=== PATIENT | female | born 1960 | race Caucasian/White ===

== ENCOUNTER → 2018-02-03 12:47 | Outpatient (CLI) | payer OTHER, SELFPAY ==
--- NOTE | 2018-02-03 | DI.MG.S_ITS ---
UNILATERAL RIGHT DIGITAL DIAGNOSTIC MAMMOGRAM 3D/2D: 02/03/2018 CLINICAL: Additional evaluation requested from prior study. Comparison is made to exams dated: 01/28/2012 mammogram - [facility], 12/30/2017 mammogram, 12/26/2016 mammogram, 12/26/2015 mammogram, and 12/22/2014 mammogram - [facility]. There are scattered fibroglandular elements in the right breast. There is a benign oval equal density asymmetry with an indistinct margin in the right breast anterior depth lateral region seen on the craniocaudal view only. This is not seen in additional views. No other significant masses or calcifications are seen in the breast. IMPRESSION: BENIGN There is no mammographic evidence of malignancy. A 1 year screening mammogram is recommended. This exam was interpreted at Station ID: [id number]. NOTE: For mammograms, a report in lay terms will be sent to the patient. Approximately 15% of breast malignancies will not be visualized mammographically. In the management of a palpable breast mass, a negative mammogram must not discourage biopsy of a clinically suspicious lesion. Electronically Signed By: Navin tang/tanvi:02/03/2018 13:32:52 letter sent: Normal Exam ACR BI-RADS Category 2: Benign Finding(s) 3342F
== END ==
PROVIDERS: Family Provider Physician Assistant; PCP Physician Assistant; Visit Provider Physician Assistant
DX: R92.2 Inconclusive mammogram (principal)
CPT/HCPCS: 77065; G0279

== ENCOUNTER 2018-03-05 07:47 | Day surgery (SDC) | payer OTHER, SELFPAY ==
[2018-03-05] VITALS (7 sets, daily range): BP systolic 92–109; BP diastolic 57–68; PULSE 49–70; RESP 11–17; TEMP 35.9–36.9; O2SAT 97–100
[2018-03-05] MEDS: SODIUM CHLORIDE 0.9% 1,000 ML 200 ML IV (08:15)
--- NOTE | 2018-03-05 09:12 | PM.HP.1 ---
History of Present Illness Date Patient Seen: 03/05/18 Time Patient Seen: 09:12 Chief complaint: [id number] SCREENING COLONOSCOPY Narrative: Pleasant 57-year-old lady who is here for her 2nd screening colonoscopy. She has a somewhat significant family history of colon cancer involving a grandparent and a cousin. She also reports that her dad has had multiple polyps removed and now has colonoscopy essentially annually. She denies any problems or symptoms related to the function of her GI tract. She says that her last colonoscopy was about 7 years ago. Patient History Family & Social History Family History: Reviewed 03/05/18 by Bhumi Turner MD Meds Home Medications Medication Instructions Recorded Confirmed Type No Known Home Medications 03/05/18 03/05/18 History Allergies Allergy/AdvReac Type Severity Reaction Status Date / Time SULFA Allergy Severe lips Uncoded 03/05/18 08:14 swelling Review of Systems Review of Systems All systems reviewed & are unremarkable except as noted in HPI and below Exam Vital Signs (past 8 hours): - 03/05/18 08:15 Temperature 96.8 F L Pulse Rate 70 Respiratory Rate 16 Blood Pressure 109/68 Pulse Oximetry 100 Oxygen Delivery Method Room Air Narrative Exam Narrative: Pleasant and healthy well-nourished well-developed lady in no distress HEENT: Normocephalic and atraumatic, pupils equal round reactive to light accommodation with anicteric sclera Lungs: Clear bilaterally Heart: Regular rate and rhythm Abdomen: Soft, nontender, active bowel sounds Extremities: Warm and well perfused Assessment & Plan Plan: Assessment/Plan Narrative: Very pleasant and healthy 57-year-old lady here for her 2nd screening colonoscopy in the setting of a weak family history of colon cancer. We discussed the risks and benefits of the procedure including but not limited to infection bleeding damage to other organs or structures in the area the risks and expected findings results the risks associated with anesthesia including stroke heart attack and . The patient expressed understanding of these risks and desired to have the procedure.
[2018-03-05] MEDS: MIDAZOLAM 5 MG/5 ML VIAL IV (09:39)
[2018-03-05] MEDS: fentaNYL 250 MCG/5 ML INJ IV (09:40)
--- NOTE | 2018-03-05 09:43 | PM.OP.1 ---
Operative Date/Time/Diagnoses Date of procedure: 03/05/18 Time of procedure: 09:43 Pre-op diagnosis: Screening Family history of colon cancer Procedure & Clinicians Procedure: Colonoscopy to the cecum Same procedure as scheduled: Yes Indications: Last colonoscopy 7 years ago Surgeon: Bhumi Turner Anesthesia Type: Sedation (Versed 6 mg; fentanyl 150 mcg) Operative Notes Findings: 1. Excellent prep 2. No polyps or mass lesions 3. No AV malformations 4. Very minimal diverticular change limited to a short segment of the sigmoid region 5. Grade 1-2 internal hemorrhoids 6. Essentially normal colonoscopy Closure Type: not applicable Specimen(s): none sent Estimated Blood Loss (mL): 0 Procedure in detail: After obtaining informed consent, the patient was brought to the GI suite and placed in the left lateral decubitus position on the examination table. After placement of appropriate monitors, the patient was given incremental doses of Versed and Fentanyl until an appropriate level of sedation was achieved. A time out was held per SCOAP protocol. A digital rectal examination was performed and did not reveal any masses or obstructing lesions. The colonoscope was gently passed into the patient's anus and the entire colon navigated to the level of the cecum with minimal difficulty. Once in the cecum, the scope was withdrawn being sure to go before and beyond all mucosal folds and prominences and get an excellent examination. The findings are noted above. At the level of the rectal vault, the scope was retroflexed and the internal anal canal was examined. The scope was straightened and air aspirated from the colon. The instrument was removed from the patient's body and the procedure was concluded. The patient was allowed to awaken from sedation without difficulty and taken to the post-anesthesia care unit in good condition. Total sedation time was 22 min Total withdrawal time was 8 min 43 sec Complications: none Condition: stable Disposition: PACU Plan for aftercare: 1. Discharge to home 2. Plan for next colonoscopy in 5 years or as clinically indicated
--- NOTE | 2018-03-05 10:21 | SUR.PHASEII ---
PT ARRIVED TO PHASE II VIA STRETCHER. PT SITTING UP WITH EYES CLOSED, EASILY AROUSABLE TO VOICE. PT BROUGHT TO BEDSIDE. PT IN STABLE CONDITION, VSS. PT DENIES ANY PAIN/DISCOMFORT OR NAUSEA. ABD SOFT. PT REQUESTING TO REST LONGER PRIOR TO GOING HOME. BED IN LOWEST POSITION AND CALL LIGHT GIVEN TO PT. PT APPEARS COMFORTABLE AT THIS TIME.
== END 2018-03-05 10:48 | disposition home or self-care (01) ==
PROVIDERS: Family Provider Physician Assistant; PCP Physician Assistant; Visit Provider Surgery
PROC: 0DJD8ZZ Inspection of Lower Intestinal Tract, Via Natural or Artificial Opening Endoscopic (ICD-10-PCS; CPT 45378; principal; 2018-03-05 08:45)
DX: Z12.11 Encounter for screening for malignant neoplasm of colon (principal); Z86.010 Personal history of colon polyps; K57.30 Diverticulosis of large intestine without perforation or abscess without bleeding; K64.1 Second degree hemorrhoids
CPT/HCPCS: 45378; 99152; J2250; J3010

== ENCOUNTER → 2019-01-18 12:21 | Outpatient (CLI) | payer OTHER, SELFPAY ==
--- NOTE | 2019-01-18 | DI.US.S_ITS ---
PROCEDURE: US THYROID INDICATIONS: NONTOXIC SINGLE THYROID NODULE TECHNIQUE: Real-time scanning was performed of the thyroid gland, with image documentation. COMPARISON: [facility], [place], THYROID, 01/01/2017, 8:40. FINDINGS: Right: Thyroid lobe measures 5.8 x 1.4 x 2.0 cm, and is homogeneous in echotexture. Left: Thyroid lobe measures 6.0 x 1.3 x 1.7 cm, and is homogenous in echotexture. Isthmus: 2.0 mm thick. Nodule number: 1 Location: Left mid Size: Unchanged at 0.8 x 0.7 x 1.1 cm. Composition: Solid Echogenicity: Hypoechoic Shape: wider than tall. Margins: Smooth Echogenic foci: None Total points: 4 ACR TI-RADS category: Moderately suspicious Nodule number: 2 Location: Left medial and posterior Size: Unchanged at 0.9 x 0.7 x 0.7 cm. Composition: Predominantly solid Echogenicity: Isoechoic Shape: wider than tall. Margins: Smooth Echogenic foci: None Total points: 3 ACR TI-RADS category: Mildly suspicious Nodule number: 3 Location: Left inferior Size: Unchanged at 1.5 x 0.9 x 0.9 cm. Composition: Predominantly solid Echogenicity: Isoechoic Shape: wider than tall. Margins: Smooth Echogenic foci: None Total points: 3 ACR TI-RADS category: Mildly suspicious IMPRESSION: Stable left thyroid nodules. Recommend continued followup ultrasound as detailed below. ACR TI-RADS definitions and recommendations: TI-RADS 1 (benign): 0 points. FNA not needed. TI-RADS 2 (not suspicious): 2 points. FNA not needed. TI-RADS 3 (mildly suspicious): 3 points. * FNA if 2.5 cm or larger, follow up if 1.5 cm or larger (at 1, 3, and 5 years). TI-RADS 4 (moderately suspicious): 4-6 points. * FNA if 1.5 cm or larger, follow up if 1 cm or larger (at 1, 2, 3, and 5 years). TI-RADS 5 (highly suspicious): 7 points or more. * FNA if 1 cm or larger, follow up if 0.5 cm or larger (every year for 5 years). Dictated by: Raji SNYDER Interpreted: Alton Arevalo MD on 01/18/2019 at 16:27 Approved by: Alton Arevalo M.D. on 01/19/2019 at 9:41
== END ==
PROVIDERS: PCP Physician Assistant; Visit Provider Physician Assistant
DX: E04.2 Nontoxic multinodular goiter (principal)
CPT/HCPCS: 76536

== ENCOUNTER → 2022-06-25 15:01 | Outpatient (CLI) | payer OTHER, SELFPAY ==
--- NOTE | 2022-06-25 | DI.RAD.S_ITS ---
PROCEDURE: XR HAND RT MIN 3V INDICATIONS: INJURY OF FINGER ON RIGHT HAND TECHNIQUE: 3 views of the hand(s) acquired. COMPARISON: None. FINDINGS: Bones: No fractures or dislocations. Carpal bones are normally aligned. Mild osteoarthritic changes are noted throughout right hand and wrist joints. Subtle radiolucencies involving ulnar aspect of 2nd and 3rd proximal and middle phalangeal heads are seen. Similar changes also seen in 4th middle phalangeal head. No suspicious bony lesions. Soft tissues: No suspicious soft tissue calcifications. IMPRESSION: No right hand fracture or dislocation. 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 Subtle erosive changes in 2nd through 4th PIP joints which may represent changes related to inflammatory arthropathy suggest clinical correlation. Dictated by: James Rolon M.D. on 06/26/2022 at 14:37 Approved by: James Rolon M.D. on 06/26/2022 at 14:38
== END ==
PROVIDERS: PCP Physician Assistant
DX: S69.91XA Unspecified injury of right wrist, hand and finger(s), initial encounter (principal); X58.XXXA Exposure to other specified factors, initial encounter
CPT/HCPCS: 73130